=== PATIENT | male | born 1960 | race Caucasian/White ===

== ENCOUNTER 2019-07-20 05:51 | Inpatient (IN) | payer MEDICARE, MEDICAID ==
[~2019-07-20] VITALS: Ht 182.9 cm; Wt 99.5 kg
[2019-07-20] VITALS (113 sets, daily range): BP systolic 123–181; BP diastolic 59–104; PULSE 91–97; TEMP 97.6–98.4; O2SAT 81–99
[2019-07-20 06:26] LABS: BASO # 0.1 (0.0-0.2); BASO % 0.9 % (0.0-2.0); EOS # 0.1 (0.0-0.7); EOS % 0.6 % (0-4.0); GRAN # 6.7 (1.4-6.5); GRAN % 71.7 % (42.2-75.2); LYMPH % 21.9 % (20.0-51.0); MEAN CELL VOLUME 88 fl (80.0-100.0); MEAN CORPUSCULAR HGB CONC 34 g/dl (33.0-37.0); MEAN PLATELET VOLUME 11.1 fl (7.4-10.4); MONO # 0.4 (0.1-0.6); MONO % 4.7 % (1.7-9.3); PLATELET COUNT 170 K/mm3 (130-400); RED BLOOD COUNT 6.12 M/mm3 (4.20-5.60); REDCELL DISTRIBUTION WIDTH-CV 14.1 % (11.5-14.5)
[2019-07-20 06:30] LABS: PROTHROMBIN TIME 11.1 SECONDS (9.7-12.8)
[2019-07-20 06:32] LABS: HEMATOCRIT 53.6 % (42.0-52.0); HEMOGLOBIN 18.3 g/dl (13.5-18.0); MEAN CORPUSCULAR HEMOGLOBIN 30 pg (27.0-31.0)
[2019-07-20 06:50] LABS: ALANINE AMINOTRANSFERASE 27 U/L (21-72); ALBUMIN 4.7 gm/dL (3.5-5.0); ALKALINE PHOSPHATASE 116 U/L (50-136); ANION GAP 13 mmol/L (7-16); AST,SGOT 41 U/L (15-37); BILIRUBIN,TOTAL 1.1 mg/dL (0.0-1.0); BLOOD UREA NITROGEN 13 mg/dL (9-20); CALCIUM 9.6 mg/dL (8.4-10.2); CARBON DIOXIDE 25 mmol/L (22-30); CHLORIDE 102 mmol/L (98-107); CREATININE, serum 0.83 (0.66-1.25); GLUCOSE 169 mg/dL (74-106); LIPASE 100 U/L (23-300); POTASSIUM 3.8 mmol/L (3.4-5.0); SODIUM 140 mmol/L (137-145); TOTAL PROTEIN 8.4 gm/dL (6.4-8.2)
[2019-07-20 07:01] LABS: TROPONIN-I < 0.012 ng/mL (0.000-0.035)
[2019-07-20] MEDS ORDERED: NORVASC 10MG10 MG (07:01)
[2019-07-20] MEDS ORDERED: ZESTRIL 10MG10 MG (07:01)
[2019-07-20] MEDS ORDERED: TIVICAY10 MG (07:02)
[2019-07-20] MEDS ORDERED: PRADAXA110 MG (07:02)
[2019-07-20] MEDS ORDERED: DESCOVY 200-251 EACH (07:03)
[2019-07-20] MEDS ORDERED: LEXAPRO20 MG PO ×2 (07:04→10:41)
[2019-07-20 08:57] LABS: COLLECTION METHOD CLEAN CATCH
[2019-07-20 09:16] LABS: MUCOUS Present /lpf; PH 7 (5-8); SQUAMOUS EPITHELIAL None Seen /hpf; URINE APPEARANCE Clear; URINE BACTERIA None Seen /hpf; URINE BILIRUBIN Negative (NEGATIVE); URINE BLOOD Negative (NEGATIVE); URINE COLOR Yellow; URINE GLUCOSE Negative (NEGATIVE); URINE KETONE Negative (NEGATIVE); URINE LEUKOCYTE ESTERASE Negative (NEGATIVE); URINE NITRATE Negative (NEGATIVE); URINE PROTEIN(semi-quant) 1+ (NEGATIVE); URINE RBC 0-2 /hpf; URINE UROBILINOGEN Negative (NEGATIVE)
[2019-07-20 09:34] LABS: TRICYCLIC ANTIDEPRESS URINE NEGATIVE
[2019-07-20] MEDS ORDERED: DISCOVY PO (10:08)
[2019-07-20] MEDS ORDERED: PRINIVIL20 MG PO (10:35)
[2019-07-20] MEDS ORDERED: TIVICAY PO (10:36)
[2019-07-20] MEDS ORDERED: PRADAXA 150MG150 MG PO (10:36)
[2019-07-20] MEDS ORDERED: LOMOTIL 0.025 M1 TAB PO (10:37)
[2019-07-20] MEDS ORDERED: MYTESI PO (10:37)
[2019-07-20] MEDS ORDERED: DAZIDOX10 MG PO (10:38)
[2019-07-20] MEDS ORDERED: OXYCONTIN30 MG PO (10:39)
[2019-07-20] MEDS ORDERED: VENTOLIN0.09 MG IH (10:39)
[2019-07-20] MEDS ORDERED: FLONASE SENSIM9.9 ML NS (10:40)
[2019-07-20] MEDS ORDERED: DESYREL 100MG100 MG PO (10:40)
[2019-07-20] MEDS ORDERED: COREG 25MG25 MG/TAB PO (10:41)
[2019-07-20] MEDS ORDERED: ZANAFLEX CAPSULE4 MG PO (10:42)
[2019-07-20] MEDS ORDERED: NORVASC 10MG10 MG PO (10:42)
--- NOTE | 2019-07-20 12:10 | NUR ---
PATIENT ARRIVES TO ICU ROOM 3 FROM ED. HE IS SETTLED IN ROOM BY JAQUELIN PADILLA. ORIENTED TO ROOM AND CALL LIGHT WITHIN REACH.
--- NOTE | 2019-07-20 12:45 | NUR ---
PATIENT IS UPSET ABOUT HIS PAIN MEDICATION DOSAGES. HE STATES THAT HE IS LEAVING. DR. COOK CALLED AT THIS TIME TO NOTIFY HIM OF LEAVING AMA. HE STATES HE IS COMING TO TALK TO THE PATIENT. PATIENT IS ASKED IF HE WILL STAY UNTIL HE TALKS TO DR. COOK. HE SAYS HE WILL WAIT TO TALK TO HIM.
--- NOTE | 2019-07-20 13:00 | NUR ---
PATIENT DECIDES TO STAY IN HOSPITAL FOR THE TIME BEING. OXYCODONE GIVEN FOR PAIN. PATIENT STATES HE WANTS TO SLEEP AT THIS TIME.
--- NOTE | 2019-07-20 13:46 | NUR ---
RESEARCH AND DEVELOPMENT DIRECTOR student met with the patient to discuss a discharge plan. The patient is staying with friends in [place] until mid-July then he will move into his new apartment in . He will be living alone. The patient has a cane and walker in case he needs them and a CPAP. The patient reports independence with ADLs. The patient's PCP is Dr. Christian Medrano at [facility]. The patient receives medications at [facility] on [address] [facility]. The patient has [place] Medicaid and Medicare. The patient does not have advanced directives in the EMR. The patient's emergency contact is Mandy Duncan . The patient plans to drive himself home upon discharge. There are no additional needs at this time.
--- NOTE | 2019-07-20 14:08 | NUR ---
The patient's address is [address] [place] [address].
--- NOTE | 2019-07-20 14:30 | NUR ---
PATIENT CONTINUES TO REST QUIETLY IN ROOM .
--- NOTE | 2019-07-20 19:00 | NUR ---
RECEIVED REPORT FROM JAQUELIN GUERRA. PT SITTING UP IN BED. CALL LIGHT WITHIN REACH.
--- NOTE | 2019-07-20 19:02 | NUR ---
REPORT TO JAQUELIN SOLER AT THIS TIME.
[2019-07-21] VITALS (293 sets, daily range): BP systolic 146–174; BP diastolic 90–110; PULSE 66–95; TEMP 97.8–98.4; O2SAT 78–100
[2019-07-21 06:43] LABS: ALBUMIN 3.5 gm/dL (3.5-5.0); CALCIUM 8.6 mg/dL (8.4-10.2); CREATININE, serum 0.72 (0.66-1.25); MAGNESIUM 1.8 mg/dL (1.6-2.3); POTASSIUM 3.4 mmol/L (3.4-5.0); TOTAL PROTEIN 6.5 gm/dL (6.4-8.2)
[2019-07-21 07:00] LABS: BASO # 0.1 (0.0-0.2); EOS # 0.1 (0.0-0.7); EOS % 1.6 % (0-4.0); GRAN # 3.4 (1.4-6.5); GRAN % 54.9 % (42.2-75.2); HEMATOCRIT 49.7 % (42.0-52.0); HEMOGLOBIN 16.5 g/dl (13.5-18.0); LYMPH # 2.2 (1.2-3.4); LYMPH % 34.9 % (20.0-51.0); MEAN CELL VOLUME 90 fl (80.0-100.0); MEAN CORPUSCULAR HEMOGLOBIN 30 pg (27.0-31.0); MEAN CORPUSCULAR HGB CONC 33 g/dl (33.0-37.0); MEAN PLATELET VOLUME 11.2 fl (7.4-10.4); MONO # 0.5 (0.1-0.6); MONO % 7.4 % (1.7-9.3); PLATELET COUNT 131 K/mm3 (130-400); RED BLOOD COUNT 5.51 M/mm3 (4.20-5.60); REDCELL DISTRIBUTION WIDTH-CV 14.2 % (11.5-14.5)
--- NOTE | 2019-07-21 07:10 | NUR ---
Report recieved from JAQUELIN Dorantes at this time. Patient resting in bed and denies pain or needs. Care assumed.
--- NOTE | 2019-07-21 08:50 | NUR ---
Dr. Aguilar rounds at this time. Orders as entered CPOE to discharge patient home.
--- NOTE | 2019-07-21 10:00 | NUR ---
CLASSIFIED AD TAKER student attended clinical rounds with the team. The patient is to discharge home this day, 07/21. No other needs.
--- NOTE | 2019-07-21 10:08 | NUR ---
Patient provided DC education and understanding verbalized. All questions asked answered. Patient dresses self in street clothing and discharges ambulatory to POC. Care completed.
== END 2019-07-21 10:08 | disposition home or self-care (01) | DRG 308 ==
LOC: COL.ER 05:51 → ICU 08:58
PROVIDERS: Emergency Medicine; ADMIT Student in an Organized Health Care Education/Training Program
DX: I48.91 Unspecified atrial fibrillation (principal); K55.069 Acute infarction of intestine, part and extent unspecified; B20 Human immunodeficiency virus [HIV] disease; C46.9 Kaposi's sarcoma, unspecified; I16.0 Hypertensive urgency; B19.20 Unspecified viral hepatitis C without hepatic coma; I10 Essential (primary) hypertension; K80.20 Calculus of gallbladder without cholecystitis without obstruction; K74.69 Other cirrhosis of liver; E78.5 Hyperlipidemia, unspecified; M51.36 Other intervertebral disc degeneration, lumbar region; Z96.642 Presence of left artificial hip joint; F17.210 Nicotine dependence, cigarettes, uncomplicated; F12.90 Cannabis use, unspecified, uncomplicated; Z79.01 Long term (current) use of anticoagulants; Z79.891 Long term (current) use of opiate analgesic; Z79.51 Long term (current) use of inhaled steroids; Z91.14 Patient's other noncompliance with medication regimen
CPT/HCPCS: 99222-AI; 99239; J1170; J1650; J2405; J3010; J7030; Q9967